=== PATIENT | male | born 1955 | race African-American/Black ===

== ENCOUNTER 2018-12-25 07:26 | Emergency (ER) | payer MEDICAID, BC ==
[~2018-12-25] VITALS: Ht 188 cm; Wt 96.4 kg
--- NOTE | 2018-12-25 07:33 | NUR ---
PT AMBULATES TO BED 11
[2018-12-25 07:35] VITALS: BP 126/88
--- NOTE | 2018-12-25 07:39 | NUR ---
Patient being evaluated by physician at bedside.
--- NOTE | 2018-12-25 07:49 | NUR ---
PATIENT PRESENTS TO ED WITH C/O BODYACHES, HEADACHE, COUGH, FATIGUE, CHILLS DENIES N/V/D; SKIN IS PINK/WARM/DRY; AAOX4 WITH EVEN AND STEADY GAIT; LUNGS CLEAR BL; HR EVEN AND REGULAR; PATIENT STATES PAIN OF 6/10 AT THIS TIME; VSS; PATIENT POSITIONED FOR COMFORT; HOB ELEVATED; BEDRAILS UP X2; BED DOWN. ER MD MADE AWARE OF PT STATUS.
--- NOTE | 2018-12-25 07:50 | NUR ---
INFLUENZA SWAB COLLECTED
--- NOTE | 2018-12-25 07:51 | NUR ---
PT TAKEN TO XRAY VIA WHEELCHAIR
--- NOTE | 2018-12-25 09:37 | NUR ---
Patient discharged with v/s stable. Written and verbal after care instructions given and explained. Patient alert, oriented and verbalized understanding of instructions. Ambulatory with steady gait. All questions addressed prior to discharge. ID band removed. Patient advised to follow up with PMD. Rx of tesseedd packer/phenergan w codeine/prednisone/azithromycin given. Patient educated on indication of medication including possible reaction and side effects. Opportunity to ask questions provided and answered.
[2018-12-25 09:38] VITALS: BP 130/75
== END 2018-12-25 09:37 | disposition home or self-care (01) ==
LOC: MED 07:26
DX: J44.1 Chronic obstructive pulmonary disease with (acute) exacerbation (principal); I10 Essential (primary) hypertension; Z85.9 Personal history of malignant neoplasm, unspecified
CPT/HCPCS: 36415; 71046; 87804; 93005; 99284